=== PATIENT | female | born 1945 | race Caucasian/White ===

== ENCOUNTER 2018-05-21 22:21 | Inpatient (IN) | payer OTHER ==
[~2018-05-21] VITALS: Ht 170.2 cm; Wt 88.9 kg
[2018-05-21] MEDS ORDERED: SODIUM CHLORIDE 0.9% 1,000 ML IV ONE (23:09)
[2018-05-21] MEDS ORDERED: ALBUTEROL (0.083%) 2.5MG/3ML NEB HHN STA (23:09)
[2018-05-21] MEDS ORDERED: IPRATROPIUM BROMIDE (0.02%) 0.5MG/2.5ML NEB HHN STA (23:09)
[2018-05-21] MEDS ORDERED: INSULIN REGULAR (HUMULIN R) 300UNITS/3ML SUBCUT ONE (23:15)
[2018-05-21 23:49] LABS: BASOPHILS % 0.1 % (0.0-2.0); HEMOGLOBIN. 11.9 g/dL (12.0-16.0); LYMPHOCYTES % 13.3 % (20.0-50.0); MEAN CORPUSCULAR HEMOGLOBIN 30.1 pg (28.0-32.0); MEAN CORPUSCULAR VOLUME 90.8 fL (81.0-99.0); MEAN PLATELET VOLUME 9.2 fl (7.4-10.4); MONOCYTES % 6.4 % (2.0-8.0); NEUTROPHILS % 80.2 % (40.0-76.0); PLATELET 186 x1000/uL (130-400); RED BLOOD CELL COUNT 3.97 mill/uL (4.2-5.4)
[2018-05-21 23:59] LABS: CHLORIDE 98 mEq/L (98-107)
[2018-05-22 00:07] LABS: BETA HYDROXYBUTYRATE 0.4 mMol/L (0.0-0.3)
[2018-05-22] MEDS ORDERED: INSULIN REGULAR (HUMULIN R) 300UNITS/3ML SUBCUT ONE (01:15)
[2018-05-22] MEDS ORDERED: IOHEXOL-350 100 ML BOTTLE ONE (03:58)
[2018-05-22] MEDS ORDERED: LEVOFLOXACIN 500MG PREMIX 100 ML IV ONE (05:00)
[2018-05-22] MEDS ORDERED: KETOROLAC 15MG/ML VIAL IV PRN (08:15)
[2018-05-22] MEDS ORDERED: SODIUM CHLORIDE 0.9% 1000ML BAG (SEPSIS BOLUS) IV ONE (08:15)
[2018-05-22] MEDS ORDERED: ONDANSETRON HCL 4MG/2ML INJ IV PRN (08:15)
[2018-05-22] MEDS ORDERED: NITROGLYCERIN 0.4MG TABLET SL SL PRN (08:15)
[2018-05-22] MEDS ORDERED: GUAIFENESIN 200MG/10ML SUGAR FREE UDC PO PRN (08:15)
[2018-05-22] MEDS ORDERED: NA PHOS,M-B/NA PHOS,DI-BA ENEMA 118ML PR PRN (08:15)
[2018-05-22] MEDS ORDERED: DOCUSATE SODIUM 100MG CAPSULE PO PRN (08:15)
[2018-05-22] MEDS ORDERED: MAGNESIUM/ALUMINUM HYDROXIDE/SIMETHICONE 30ML UDC PO PRN (08:15)
[2018-05-22] MEDS ORDERED: DEXTROSE 50% WATER 50ML SYRINGE IV PRN (08:15)
[2018-05-22] MEDS ORDERED: INSULIN LISPRO 100 UNITS/ML SUBCUT SCH (08:20)
[2018-05-22] MEDS ORDERED: CICL6.1H2 INH (08:40)
[2018-05-22] MEDS: BLOOD SUGAR DIAGNOSTIC STRIP TEST SCH ×4 (09:17→21:00)
[2018-05-22] MEDS: IPRATROPIUM/ALBUTEROL 0.5-3(2.5)MG/3ML NEB INH PRN ×2 (09:29→12:33)
[2018-05-22] MEDS ORDERED: INSULIN GLARGINE UD 100 UNITS/ML SYR SUBCUT SCH (10:00)
[2018-05-22 10:07] LABS: VITAMIN B12 SERUM 855 pg/mL (211-911)
[2018-05-22 10:11] LABS: FOLIC ACID (FOLATE) SERUM > 20.00 ng/mL (>5.38)
[2018-05-22 12:00] VITALS: BP 151/61
[2018-05-22] MEDS ORDERED: ATOR40TA70 MT (12:14)
[2018-05-22] MEDS ORDERED: VALS160T28 MT (12:14)
[2018-05-22] MEDS ORDERED: MEDICATION NOT ON FORMULARY EA (Valsartan 1 TAB) MT SCH (12:15)
[2018-05-22 12:22] VITALS: BP 151/61
[2018-05-22] MEDS: ASPIRIN 325MG EC TABLET PO SCH (13:12)
[2018-05-22] MEDS: ASCORBIC ACID 500 MG TABLET PO SCH ×2 (13:13→22:30)
[2018-05-22] MEDS: FAMOTIDINE 20MG TABLET PO SCH (13:13)
[2018-05-22] MEDS: LOSARTAN POTASSIUM 100 MG TABLET PO SCH (13:13)
[2018-05-22] MEDS: ZINC SULFATE 220 MG ( 50 ) CAPSULE PO SCH (13:14)
[2018-05-22] MEDS: ENOXAPARIN 40MG/0.4ML SYR SUBCUT SCH (13:16)
[2018-05-22] MEDS: INSULIN LISPRO 100 UNITS/ML SUBCUT SCH ×3 (13:18→22:34)
[2018-05-22] MEDS ORDERED: METHYLPREDNISOLONE SOD SUCC 125 MG/2 ML VIAL IV SCH (14:00)
[2018-05-22] MEDS ORDERED: LOSARTAN POTASSIUM 25 MG TABLET PO SCH (14:00)
[2018-05-22] MEDS: CEFTRIAXONE 1 G PREMIX 50 ML IV SCH (14:54)
[2018-05-22] MEDS: SODIUM CHLORIDE 0.9% 1,000 ML IV SCH (14:54)
[2018-05-22 15:50] LABS: BG BASE EXCESS 0.4 mmol/L (-2.0-2.0); BG CARBOXYHEMOGLOBIN 0.5 % (0.5-1.5); BG DEOXYHEMOGLOBIN 5.7 % (0.0-5.0); BG FRACTION INSPIRED OXYGEN 21; BG HCO3 ACT 25.1 mmol/L (22.0-26.0); BG METHEMOGLOBIN 0.3 % (0.0-1.5); BG OXYGEN SATURATION 94.3 % (92.0-98.5); BG OXYHEMOGLOBIN 93.5 % (94.0-97.0); BG PCO2 40.9 mmHg (35.0-45.0); BG PH 7.406 (7.350-7.450); BG PO2 72.6 mmHg (75.0-100.0); BG SAMPLE SITE RIGHT RADIAL; BG TOTAL HEMOGLOBIN 11.6 g/dL (12.0-18.0); BG VENT MODE ROOM AIR
[2018-05-22] MEDS ORDERED: IPRATROPIUM/ALBUTEROL 0.5-3(2.5)MG/3ML NEB HHN SCH (16:00)
[2018-05-22] MEDS ORDERED: BENZONATATE 100MG CAPSULE PO PRN (16:00)
[2018-05-22 18:53] LABS: CREATINE KINASE 235 IU/L (26-192)
[2018-05-22 18:54] LABS: CREATINE KINASE MB FRACTION 5.3 ng/mL (0.5-3.6)
[2018-05-22 20:00] VITALS: BP 145/58
[2018-05-22] MEDS: IPRATROPIUM/ALBUTEROL 0.5-3(2.5)MG/3ML NEB HHN SCH (21:36)
[2018-05-22] MEDS: METHYLPREDNISOLONE SOD SUCC 40 MG/ML VIAL IV SCH (22:24)
[2018-05-22] MEDS: ATORVASTATIN CALCIUM 40MG TABLET PO SCH (22:31)
[2018-05-22] MEDS: GUAIFENESIN 600MG ER TABLET PO SCH (22:31)
[2018-05-22] MEDS: ZOLPIDEM TARTRATE 5MG TABLET PO PRN (22:38)
[2018-05-23 00:01] VITALS: BP 114/60
[2018-05-23] MEDS: IPRATROPIUM/ALBUTEROL 0.5-3(2.5)MG/3ML NEB HHN SCH ×4 (02:52→20:18)
[2018-05-23 04:00] VITALS: BP 160/75
[2018-05-23] MEDS: SODIUM CHLORIDE 0.9% 1,000 ML IV SCH ×5 (04:06→22:01)
[2018-05-23] MEDS ORDERED: LEVOFLOXACIN 250MG PREMIX 50 ML IV SCH (06:00)
[2018-05-23] MEDS: METHYLPREDNISOLONE SOD SUCC 40 MG/ML VIAL IV SCH ×3 (06:07→21:50)
[2018-05-23 06:21] LABS: BASOPHILS % 0.1 % (0.0-2.0); HEMATOCRIT. 34.4 % (36.0-48.0); HEMOGLOBIN. 11.5 g/dL (12.0-16.0); LYMPHOCYTES % 17.2 % (20.0-50.0); MEAN CORPUSCULAR HEMOGLOBIN 30.3 pg (28.0-32.0); MEAN CORPUSCULAR VOLUME 90.8 fL (81.0-99.0); MEAN PLATELET VOLUME 9.3 fl (7.4-10.4); NEUTROPHILS % 77.7 % (40.0-76.0); PLATELET 185 x1000/uL (130-400); RED BLOOD CELL COUNT 3.79 mill/uL (4.2-5.4)
[2018-05-23 06:24] LABS: CHLORIDE 106 mEq/L (98-107)
[2018-05-23] MEDS: INSULIN LISPRO 100 UNITS/ML SUBCUT SCH ×4 (06:35→20:37)
[2018-05-23] MEDS: BLOOD SUGAR DIAGNOSTIC STRIP TEST SCH ×4 (06:36→21:50)
[2018-05-23 06:53] LABS: *AMPHETAMINES SCREEN URINE NEGATIVE (NEGATIVE); *BARBITURATES SCREEN URINE NEGATIVE (NEGATIVE); *COCAINE SCREEN URINE NEGATIVE (NEGATIVE)
[2018-05-23 06:54] LABS: *BENZODIAZEPINES SCREEN URINE NEGATIVE (NEGATIVE); CANNABINOID URINE SCREEN NEGATIVE (NEGATIVE); METHADONE URINE SCREEN NEGATIVE (NEGATIVE); OPIATES URINE SCREEN PRESUMTIVE POSITIVE (NEGATIVE); PHENCYCLIDINE URINE SCREEN NEGATIVE (NEGATIVE)
[2018-05-23 08:00] VITALS: BP 153/64
[2018-05-23] MEDS: ZINC SULFATE 220 MG ( 50 ) CAPSULE PO SCH (08:39)
[2018-05-23] MEDS: LOSARTAN POTASSIUM 100 MG TABLET PO SCH (08:39)
[2018-05-23] MEDS: FAMOTIDINE 20MG TABLET PO SCH (08:39)
[2018-05-23] MEDS: ASPIRIN 325MG EC TABLET PO SCH (08:39)
[2018-05-23] MEDS: CEFTRIAXONE 1 G PREMIX 50 ML IV SCH (08:40)
[2018-05-23] MEDS: GUAIFENESIN 600MG ER TABLET PO SCH ×2 (08:40→20:36)
[2018-05-23] MEDS: ASCORBIC ACID 500 MG TABLET PO SCH ×2 (08:40→20:36)
[2018-05-23] MEDS: ENOXAPARIN 40MG/0.4ML SYR SUBCUT SCH (11:09)
[2018-05-23] MEDS: INSULIN GLARGINE UD 100 UNITS/ML SYR SUBCUT SCH (11:26)
[2018-05-23] MEDS: CEFEPIME 1,000 MG in DEXTROSE 5% WATER 50 ML IV SCH ×2 (11:32→21:51)
[2018-05-23 11:33] LABS: BG BASE EXCESS -1.9 mmol/L (-2.0-2.0); BG CARBOXYHEMOGLOBIN 0.6 % (0.5-1.5); BG FRACTION INSPIRED OXYGEN 21; BG HCO3 ACT 21.4 mmol/L (22.0-26.0); BG METHEMOGLOBIN 0.1 % (0.0-1.5); BG OXYGEN SATURATION 91.9 % (92.0-98.5); BG OXYHEMOGLOBIN 91.3 % (94.0-97.0); BG PCO2 32.2 mmHg (35.0-45.0); BG PH 7.441 (7.350-7.450); BG PO2 64.9 mmHg (75.0-100.0); BG SAMPLE SITE RIGHT BRACHIAL; BG TOTAL HEMOGLOBIN 12.3 g/dL (12.0-18.0); BG VENT MODE ROOM AIR
[2018-05-23 11:35] LABS: CLARITY URINE CLOUDY (CLEAR); COLOR URINE YELLOW (YELLOW); KETONES URINE NEGATIVE (NEGATIVE); LEUKOCYTE ESTERASE URINE NEGATIVE (NEGATIVE); NITRITE URINE NEGATIVE (NEGATIVE); OCCULT BLOOD URINE NEGATIVE (NEGATIVE); PH URINE 5.5 (4.5-8.0); PROTEIN URINE TRACE (NEGATIVE); SPECIFIC GRAVITY URINE 1.022 (1.005-1.030); UROBILINOGEN URINE 0.2 E.U./dL (0.2-1.0)
[2018-05-23 12:00] VITALS: BP 150/73
[2018-05-23] MEDS ORDERED: TERBUTALINE SULFATE 1MG/ML VIAL SUBCUT NR (13:00)
[2018-05-23 16:00] VITALS: BP 136/50
[2018-05-23] MEDS: BENZONATATE 100MG CAPSULE PO SCH (18:14)
[2018-05-23 20:00] VITALS: BP 152/69
[2018-05-23] MEDS: ATORVASTATIN CALCIUM 40MG TABLET PO SCH (20:36)
[2018-05-23] MEDS: ZOLPIDEM TARTRATE 5MG TABLET PO PRN (21:50)
[2018-05-24] VITALS: BP 163/61
[2018-05-24 04:00] VITALS: BP 146/76
[2018-05-24] MEDS: BLOOD SUGAR DIAGNOSTIC STRIP TEST SCH ×4 (06:09→20:54)
[2018-05-24] MEDS: METHYLPREDNISOLONE SOD SUCC 40 MG/ML VIAL IV SCH ×3 (06:09→21:12)
[2018-05-24] MEDS: INSULIN LISPRO 100 UNITS/ML SUBCUT SCH ×4 (06:11→20:54)
[2018-05-24 06:16] LABS: BASOPHILS % 0.1 % (0.0-2.0); HEMATOCRIT. 35.3 % (36.0-48.0); HEMOGLOBIN. 11.6 g/dL (12.0-16.0); LYMPHOCYTES % 12.9 % (20.0-50.0); MEAN CORPUSCULAR HEMOGLOBIN 29.8 pg (28.0-32.0); MEAN CORPUSCULAR VOLUME 90.6 fL (81.0-99.0); MEAN PLATELET VOLUME 9.1 fl (7.4-10.4); MONOCYTES % 7.4 % (2.0-8.0); NEUTROPHILS % 79.6 % (40.0-76.0); PLATELET 194 x1000/uL (130-400); RED BLOOD CELL COUNT 3.89 mill/uL (4.2-5.4)
[2018-05-24] MEDS: BENZONATATE 100MG CAPSULE PO SCH ×3 (06:17→16:31)
[2018-05-24 06:31] LABS: CHLORIDE 108 mEq/L (98-107)
[2018-05-24 08:00] VITALS: BP 183/88
[2018-05-24] MEDS: ASPIRIN 325MG EC TABLET PO SCH (08:12)
[2018-05-24] MEDS: LOSARTAN POTASSIUM 100 MG TABLET PO SCH (08:12)
[2018-05-24] MEDS: ZINC SULFATE 220 MG ( 50 ) CAPSULE PO SCH (08:12)
[2018-05-24] MEDS: GUAIFENESIN 600MG ER TABLET PO SCH (08:12)
[2018-05-24] MEDS: ASCORBIC ACID 500 MG TABLET PO SCH ×2 (08:12→20:52)
[2018-05-24] MEDS: FAMOTIDINE 20MG TABLET PO SCH (08:12)
[2018-05-24] MEDS ORDERED: FAMOTIDINE 20MG TABLET PO SCH (09:00)
[2018-05-24] MEDS ORDERED: DOBUTAMINE 250MG PREMIX 250 ML IV SCH (09:00)
[2018-05-24] MEDS: CEFEPIME 1,000 MG in DEXTROSE 5% WATER 50 ML IV SCH ×2 (10:29→20:53)
[2018-05-24] MEDS: LORATADINE 10MG TABLET PO SCH (10:41)
[2018-05-24] MEDS: INSULIN GLARGINE UD 100 UNITS/ML SYR SUBCUT SCH (10:42)
[2018-05-24 12:00] VITALS: BP 151/66
[2018-05-24] MEDS: AMLODIPINE 5MG TABLET PO SCH (12:01)
[2018-05-24] MEDS: ENOXAPARIN 40MG/0.4ML SYR SUBCUT SCH (12:01)
[2018-05-24] MEDS: IPRATROPIUM/ALBUTEROL 0.5-3(2.5)MG/3ML NEB HHN SCH ×2 (14:04→20:15)
[2018-05-24] MEDS: MONTELUKAST SODIUM 10MG TABLET PO SCH (16:31)
[2018-05-24 16:46] VITALS: BP 168/74
[2018-05-24] MEDS: CLONIDINE 0.1MG TABLET PO PRN (17:10)
[2018-05-24 20:00] VITALS: BP 129/68
[2018-05-24] MEDS: ATORVASTATIN CALCIUM 40MG TABLET PO SCH (20:52)
[2018-05-24] MEDS: ZOLPIDEM TARTRATE 5MG TABLET PO PRN (20:52)
[2018-05-24] MEDS: SODIUM CHLORIDE 0.9% 1,000 ML IV SCH (20:53)
[2018-05-25] VITALS: BP 157/76
[2018-05-25] MEDS: BENZONATATE 100MG CAPSULE PO SCH ×3 (00:06→17:21)
[2018-05-25] MEDS: IPRATROPIUM/ALBUTEROL 0.5-3(2.5)MG/3ML NEB HHN SCH ×4 (02:16→21:21)
[2018-05-25 04:00] VITALS: BP 157/75
[2018-05-25] MEDS: METHYLPREDNISOLONE SOD SUCC 40 MG/ML VIAL IV SCH ×3 (05:16→21:08)
[2018-05-25] MEDS: SODIUM CHLORIDE 0.9% 1,000 ML IV SCH (05:19)
[2018-05-25] MEDS: INSULIN LISPRO 100 UNITS/ML SUBCUT SCH ×4 (06:45→20:39)
[2018-05-25] MEDS: BLOOD SUGAR DIAGNOSTIC STRIP TEST SCH ×4 (06:45→20:24)
[2018-05-25 08:30] VITALS: BP 167/77
[2018-05-25] MEDS: ZINC SULFATE 220 MG ( 50 ) CAPSULE PO SCH (09:15)
[2018-05-25] MEDS: AMLODIPINE 5MG TABLET PO SCH (09:15)
[2018-05-25] MEDS: ASCORBIC ACID 500 MG TABLET PO SCH ×2 (09:15→20:35)
[2018-05-25] MEDS: FAMOTIDINE 20MG TABLET PO SCH (09:15)
[2018-05-25] MEDS: CEFEPIME 1,000 MG in DEXTROSE 5% WATER 50 ML IV SCH (09:15)
[2018-05-25] MEDS: LORATADINE 10MG TABLET PO SCH (09:15)
[2018-05-25] MEDS: ASPIRIN 325MG EC TABLET PO SCH (09:16)
[2018-05-25] MEDS: LOSARTAN POTASSIUM 100 MG TABLET PO SCH (09:16)
[2018-05-25] MEDS: INSULIN GLARGINE UD 100 UNITS/ML SYR SUBCUT SCH (10:22)
[2018-05-25] MEDS ORDERED: OSELTAMIVIR 75MG CAPSULE PO SCH (10:30)
[2018-05-25] MEDS: ENOXAPARIN 40MG/0.4ML SYR SUBCUT SCH (11:21)
[2018-05-25] MEDS: OSELTAMIVIR 30MG CAPSULE PO SCH ×2 (11:21→20:35)
[2018-05-25] MEDS: GUAIFENESIN 600MG ER TABLET PO SCH ×2 (11:21→20:34)
[2018-05-25 12:30] VITALS: BP 170/79
[2018-05-25] MEDS: CLONIDINE 0.1MG TABLET PO PRN (13:02)
[2018-05-25] MEDS: CEFTRIAXONE 1 G PREMIX 50 ML IV SCH (13:02)
[2018-05-25] MEDS: AZITHROMYCIN 500 MG in DEXT 5% WATER 250 ML IV SCH (13:48)
[2018-05-25 16:00] VITALS: BP 133/60
[2018-05-25] MEDS: MONTELUKAST SODIUM 10MG TABLET PO SCH (17:21)
[2018-05-25 20:00] VITALS: BP_SYST 146; BP_SYST 164; BP_DIAS 67; BP_DIAS 88
[2018-05-25] MEDS: ATORVASTATIN CALCIUM 40MG TABLET PO SCH (20:35)
[2018-05-25] MEDS: ZOLPIDEM TARTRATE 5MG TABLET PO PRN (22:19)
[2018-05-26] VITALS (7 sets, daily range): BP systolic 139–182; BP diastolic 63–87
[2018-05-26] MEDS: BENZONATATE 100MG CAPSULE PO SCH ×4 (00:26→23:54)
[2018-05-26] MEDS: IPRATROPIUM/ALBUTEROL 0.5-3(2.5)MG/3ML NEB HHN SCH ×4 (02:50→21:41)
[2018-05-26] MEDS: CLONIDINE 0.1MG TABLET PO PRN (04:52)
[2018-05-26] MEDS: BLOOD SUGAR DIAGNOSTIC STRIP TEST SCH ×4 (05:53→20:24)
[2018-05-26] MEDS: INSULIN LISPRO 100 UNITS/ML SUBCUT SCH ×4 (06:00→21:21)
[2018-05-26] MEDS: METHYLPREDNISOLONE SOD SUCC 40 MG/ML VIAL IV SCH ×3 (06:22→21:48)
[2018-05-26] MEDS: LORATADINE 10MG TABLET PO SCH (08:19)
[2018-05-26] MEDS: LOSARTAN POTASSIUM 100 MG TABLET PO SCH (08:19)
[2018-05-26] MEDS: CEFTRIAXONE 1 G PREMIX 50 ML IV SCH (08:19)
[2018-05-26] MEDS: GUAIFENESIN 600MG ER TABLET PO SCH ×2 (08:19→21:16)
[2018-05-26] MEDS: ASPIRIN 325MG EC TABLET PO SCH (08:19)
[2018-05-26] MEDS: OSELTAMIVIR 30MG CAPSULE PO SCH ×2 (08:19→21:15)
[2018-05-26] MEDS: ASCORBIC ACID 500 MG TABLET PO SCH ×2 (08:19→21:16)
[2018-05-26] MEDS: FAMOTIDINE 20MG TABLET PO SCH (08:19)
[2018-05-26] MEDS: ZINC SULFATE 220 MG ( 50 ) CAPSULE PO SCH (08:19)
[2018-05-26] MEDS: AMLODIPINE 5MG TABLET PO SCH (08:20)
[2018-05-26] MEDS: AZITHROMYCIN 500 MG in DEXT 5% WATER 250 ML IV SCH (09:20)
[2018-05-26] MEDS: INSULIN GLARGINE UD 100 UNITS/ML SYR SUBCUT SCH (09:21)
[2018-05-26] MEDS: ALPRAZOLAM 0.25 MG TABLET PO PRN (12:53)
[2018-05-26] MEDS: HYDRALAZINE HCL 50MG TABLET PO SCH ×2 (12:53→21:16)
[2018-05-26] MEDS: ENOXAPARIN 40MG/0.4ML SYR SUBCUT SCH (12:53)
[2018-05-26] MEDS: ACETYLCYSTEINE 200MG/ML 20% VIAL 4ML INH SCH (14:26)
[2018-05-26] MEDS: MONTELUKAST SODIUM 10MG TABLET PO SCH (17:06)
[2018-05-26] MEDS: ATORVASTATIN CALCIUM 40MG TABLET PO SCH (21:15)
[2018-05-26] MEDS: ZOLPIDEM TARTRATE 5MG TABLET PO PRN (22:13)
[2018-05-27] VITALS (7 sets, daily range): BP systolic 147–177; BP diastolic 52–85
[2018-05-27] MEDS: IPRATROPIUM/ALBUTEROL 0.5-3(2.5)MG/3ML NEB HHN SCH ×3 (02:22→20:05)
[2018-05-27] MEDS: ACETYLCYSTEINE 200MG/ML 20% VIAL 4ML INH SCH ×2 (02:22→12:36)
[2018-05-27] MEDS: METHYLPREDNISOLONE SOD SUCC 40 MG/ML VIAL IV SCH ×3 (05:21→21:53)
[2018-05-27] MEDS: HYDRALAZINE HCL 50MG TABLET PO SCH ×3 (05:23→21:55)
[2018-05-27] MEDS: CLONIDINE 0.1MG TABLET PO PRN (05:23)
[2018-05-27] MEDS: BLOOD SUGAR DIAGNOSTIC STRIP TEST SCH ×4 (05:28→21:42)
[2018-05-27] MEDS: INSULIN LISPRO 100 UNITS/ML SUBCUT SCH ×4 (05:32→21:53)
[2018-05-27] MEDS: CEFTRIAXONE 1 G PREMIX 50 ML IV SCH (09:19)
[2018-05-27] MEDS: BENZONATATE 100MG CAPSULE PO SCH ×2 (09:19→17:06)
[2018-05-27] MEDS: OSELTAMIVIR 30MG CAPSULE PO SCH ×2 (09:19→21:54)
[2018-05-27] MEDS: ASCORBIC ACID 500 MG TABLET PO SCH ×2 (09:19→21:55)
[2018-05-27] MEDS: LOSARTAN POTASSIUM 100 MG TABLET PO SCH (09:19)
[2018-05-27] MEDS: ZINC SULFATE 220 MG ( 50 ) CAPSULE PO SCH (09:20)
[2018-05-27] MEDS: AMLODIPINE 5MG TABLET PO SCH (09:20)
[2018-05-27] MEDS: FAMOTIDINE 20MG TABLET PO SCH (09:20)
[2018-05-27] MEDS: GUAIFENESIN 600MG ER TABLET PO SCH ×2 (09:20→21:54)
[2018-05-27] MEDS: LORATADINE 10MG TABLET PO SCH (09:20)
[2018-05-27] MEDS: ASPIRIN 325MG EC TABLET PO SCH (09:23)
[2018-05-27] MEDS: INSULIN GLARGINE UD 100 UNITS/ML SYR SUBCUT SCH (09:24)
[2018-05-27] MEDS: AZITHROMYCIN 500 MG in DEXT 5% WATER 250 ML IV SCH (10:37)
[2018-05-27] MEDS: ALPRAZOLAM 0.25 MG TABLET PO PRN (10:37)
[2018-05-27] MEDS: ENOXAPARIN 40MG/0.4ML SYR SUBCUT SCH (12:02)
[2018-05-27] MEDS: MONTELUKAST SODIUM 10MG TABLET PO SCH (17:06)
[2018-05-27] MEDS: ZOLPIDEM TARTRATE 5MG TABLET PO PRN (21:53)
[2018-05-27] MEDS: ATORVASTATIN CALCIUM 40MG TABLET PO SCH (21:53)
[2018-05-28] VITALS: BP 167/75
[2018-05-28] MEDS: CLONIDINE 0.1MG TABLET PO PRN (00:04)
[2018-05-28] MEDS: BENZONATATE 100MG CAPSULE PO SCH ×3 (00:04→16:16)
[2018-05-28] MEDS: ACETYLCYSTEINE 200MG/ML 20% VIAL 4ML INH SCH ×3 (01:11→22:00)
[2018-05-28] MEDS: IPRATROPIUM/ALBUTEROL 0.5-3(2.5)MG/3ML NEB HHN SCH ×4 (01:11→20:18)
[2018-05-28] MEDS: BLOOD SUGAR DIAGNOSTIC STRIP TEST SCH ×4 (06:42→20:52)
[2018-05-28] MEDS: METHYLPREDNISOLONE SOD SUCC 40 MG/ML VIAL IV SCH ×3 (06:42→21:22)
[2018-05-28] MEDS: INSULIN LISPRO 100 UNITS/ML SUBCUT SCH ×4 (06:42→21:05)
[2018-05-28] MEDS: HYDRALAZINE HCL 50MG TABLET PO SCH ×3 (06:43→21:03)
[2018-05-28 07:50] VITALS: BP 153/67
[2018-05-28] MEDS: INSULIN GLARGINE UD 100 UNITS/ML SYR SUBCUT SCH (09:39)
[2018-05-28] MEDS: CEFTRIAXONE 1 G PREMIX 50 ML IV SCH (09:46)
[2018-05-28] MEDS: ZINC SULFATE 220 MG ( 50 ) CAPSULE PO SCH (09:46)
[2018-05-28] MEDS: FAMOTIDINE 20MG TABLET PO SCH (09:46)
[2018-05-28] MEDS: ASCORBIC ACID 500 MG TABLET PO SCH ×2 (09:47→21:04)
[2018-05-28] MEDS: LOSARTAN POTASSIUM 100 MG TABLET PO SCH (09:47)
[2018-05-28] MEDS: GUAIFENESIN 600MG ER TABLET PO SCH ×2 (09:47→21:04)
[2018-05-28] MEDS: LORATADINE 10MG TABLET PO SCH (09:47)
[2018-05-28] MEDS: AZITHROMYCIN 500 MG TABLET PO SCH (09:47)
[2018-05-28] MEDS: OSELTAMIVIR 30MG CAPSULE PO SCH ×2 (09:47→21:04)
[2018-05-28] MEDS: AMLODIPINE 5MG TABLET PO SCH (09:47)
[2018-05-28] MEDS: ASPIRIN 325MG EC TABLET PO SCH (09:47)
[2018-05-28] MEDS: ALPRAZOLAM 0.25 MG TABLET PO PRN ×2 (09:48→18:16)
[2018-05-28 11:45] VITALS: BP 153/68
[2018-05-28] MEDS: ENOXAPARIN 40MG/0.4ML SYR SUBCUT SCH (13:08)
[2018-05-28] MEDS: MONTELUKAST SODIUM 10MG TABLET PO SCH (16:16)
[2018-05-28 16:20] VITALS: BP 154/62
[2018-05-28 20:00] VITALS: BP 144/56
[2018-05-28] MEDS: ATORVASTATIN CALCIUM 40MG TABLET PO SCH (21:03)
[2018-05-28] MEDS: ZOLPIDEM TARTRATE 5MG TABLET PO PRN (21:47)
[2018-05-29] VITALS: BP 159/73
[2018-05-29] MEDS: BENZONATATE 100MG CAPSULE PO SCH ×3 (00:15→16:44)
[2018-05-29 04:00] VITALS: BP 146/64
[2018-05-29] MEDS: METHYLPREDNISOLONE SOD SUCC 40 MG/ML VIAL IV SCH (05:40)
[2018-05-29] MEDS: BLOOD SUGAR DIAGNOSTIC STRIP TEST SCH ×4 (05:41→21:58)
[2018-05-29] MEDS: HYDRALAZINE HCL 50MG TABLET PO SCH ×3 (06:18→21:58)
[2018-05-29] MEDS: INSULIN LISPRO 100 UNITS/ML SUBCUT SCH ×4 (06:19→21:59)
[2018-05-29 08:00] VITALS: BP 167/73
[2018-05-29] MEDS: IPRATROPIUM/ALBUTEROL 0.5-3(2.5)MG/3ML NEB HHN SCH ×4 (08:07→21:41)
[2018-05-29] MEDS: ACETYLCYSTEINE 200MG/ML 20% VIAL 4ML INH SCH ×2 (08:07→14:33)
[2018-05-29] MEDS: CEFTRIAXONE 1 G PREMIX 50 ML IV SCH (09:00)
[2018-05-29] MEDS: ASPIRIN 325MG EC TABLET PO SCH (09:08)
[2018-05-29] MEDS: AMLODIPINE 5MG TABLET PO SCH (09:08)
[2018-05-29] MEDS: ALPRAZOLAM 0.25 MG TABLET PO PRN ×2 (09:08→17:16)
[2018-05-29] MEDS: LORATADINE 10MG TABLET PO SCH (09:08)
[2018-05-29] MEDS: LOSARTAN POTASSIUM 100 MG TABLET PO SCH (09:08)
[2018-05-29] MEDS: GUAIFENESIN 600MG ER TABLET PO SCH ×2 (09:08→21:57)
[2018-05-29] MEDS: ZINC SULFATE 220 MG ( 50 ) CAPSULE PO SCH (09:09)
[2018-05-29] MEDS: FAMOTIDINE 20MG TABLET PO SCH (09:09)
[2018-05-29] MEDS: OSELTAMIVIR 30MG CAPSULE PO SCH ×2 (09:14→21:58)
[2018-05-29] MEDS: AZITHROMYCIN 500 MG TABLET PO SCH (09:14)
[2018-05-29] MEDS: ASCORBIC ACID 500 MG TABLET PO SCH ×2 (09:14→21:58)
[2018-05-29] MEDS: INSULIN GLARGINE UD 100 UNITS/ML SYR SUBCUT SCH (11:15)
[2018-05-29] MEDS: PREDNISONE 20MG TABLET PO SCH (11:17)
[2018-05-29] MEDS: ENOXAPARIN 40MG/0.4ML SYR SUBCUT SCH (11:17)
[2018-05-29 12:00] VITALS: BP 149/68
[2018-05-29 16:00] VITALS: BP_SYST 102; BP_SYST 149; BP_DIAS 63; BP_DIAS 68
[2018-05-29] MEDS: MONTELUKAST SODIUM 10MG TABLET PO SCH (16:43)
[2018-05-29 20:00] VITALS: BP 155/70
[2018-05-29] MEDS: ATORVASTATIN CALCIUM 40MG TABLET PO SCH (21:57)
[2018-05-30] VITALS: BP 167/65
[2018-05-30] MEDS: BENZONATATE 100MG CAPSULE PO SCH ×2 (01:06→08:24)
[2018-05-30] MEDS: CLONIDINE 0.1MG TABLET PO PRN (01:06)
[2018-05-30] MEDS: ACETAMINOPHEN 325MG TABLET PO PRN ×2 (01:15→08:24)
[2018-05-30] MEDS: ACETYLCYSTEINE 200MG/ML 20% VIAL 4ML INH SCH ×3 (02:01→09:33)
[2018-05-30] MEDS: IPRATROPIUM/ALBUTEROL 0.5-3(2.5)MG/3ML NEB HHN SCH ×2 (02:34→09:33)
[2018-05-30 04:00] VITALS: BP 142/64
[2018-05-30] MEDS: HYDRALAZINE HCL 50MG TABLET PO SCH (06:12)
[2018-05-30] MEDS: BLOOD SUGAR DIAGNOSTIC STRIP TEST SCH (06:24)
[2018-05-30] MEDS: INSULIN LISPRO 100 UNITS/ML SUBCUT SCH (06:24)
[2018-05-30 08:22] VITALS: BP 155/67
[2018-05-30] MEDS: LOSARTAN POTASSIUM 100 MG TABLET PO SCH (08:24)
[2018-05-30] MEDS: AZITHROMYCIN 500 MG TABLET PO SCH (08:24)
[2018-05-30] MEDS: PREDNISONE 20MG TABLET PO SCH (08:24)
[2018-05-30] MEDS: ASPIRIN 325MG EC TABLET PO SCH (08:24)
[2018-05-30] MEDS: ZINC SULFATE 220 MG ( 50 ) CAPSULE PO SCH (08:24)
[2018-05-30] MEDS: ASCORBIC ACID 500 MG TABLET PO SCH (08:25)
[2018-05-30] MEDS: CEFTRIAXONE 1 G PREMIX 50 ML IV SCH (08:25)
[2018-05-30] MEDS: AMLODIPINE 5MG TABLET PO SCH (08:25)
[2018-05-30] MEDS: FAMOTIDINE 20MG TABLET PO SCH (08:25)
[2018-05-30] MEDS: LORATADINE 10MG TABLET PO SCH (08:25)
[2018-05-30] MEDS: GUAIFENESIN 600MG ER TABLET PO SCH (08:25)
[2018-05-30] MEDS: INSULIN GLARGINE UD 100 UNITS/ML SYR SUBCUT SCH (09:04)
[2018-05-30] MEDS: ALPRAZOLAM 0.25 MG TABLET PO PRN (09:04)
[2018-05-30 11:00] VITALS: BP 155/67
== END 2018-05-30 13:40 | disposition home or self-care (01) | DRG 871 ==
LOC: ER 22:21 → 8WST 05-22 04:43 → EDBEDREQ 05-22 04:45 → EDBEDREQTM 05-22 04:45 → ENRESERV 05-22 10:19 → CANRESERV 05-22 10:19 → ENRESERV 05-22 10:24
PROVIDERS: ADMIT Internal Medicine; ATTEND Internal Medicine
DX: A41.9 Sepsis, unspecified organism (principal); J96.01 Acute respiratory failure with hypoxia; J45.901 Unspecified asthma with (acute) exacerbation; N17.9 Acute kidney failure, unspecified; J44.1 Chronic obstructive pulmonary disease with (acute) exacerbation; I50.42 Chronic combined systolic (congestive) and diastolic (congestive) heart failure; E11.65 Type 2 diabetes mellitus with hyperglycemia; E78.00 Pure hypercholesterolemia, unspecified; I11.0 Hypertensive heart disease with heart failure; Z87.891 Personal history of nicotine dependence; E11.9 Type 2 diabetes mellitus without complications; Z79.4 Long term (current) use of insulin
CPT/HCPCS: 36415; 36600; 71045; 71275; 78452; 80061; 80305; 82010; 82375; 82550; 82553; 82607; 82746; 82805; 82962; 83036; 83605; 83735; 83880; 84443; 84484; 85379; 87804; 93005; 93017; 93306; 93970; 94640; 96360; 96372; 97161; 97166; 99285; A9500; J0456; J0692; J0696; J1250; J1650; J1815; J1885; J1956; J2920; J2930; J3105; J7030; J7060; J7512; J7608; J7620; Q9967